=== PATIENT | female | born 1995 | race Caucasian/White ===

== ENCOUNTER 2019-07-26 21:47 | Emergency (ER) | payer OTHER ==
[~2019-07-26] VITALS: Ht 175.3 cm; Wt 117.9 kg
[2019-07-26 22:07] LABS: ABSOLUTE BASOPHILS 0.1 thou/uL (0.0-0.2); ABSOLUTE EOSINOPHILS 0.1 thou/uL (0.0-0.7); ABSOLUTE LYMPHOCYTES 3.2 thou/uL (0.8-5.3); ABSOLUTE MONOCYTES 0.8 thou/uL (0.0-1.2); ABSOLUTE NEUTROPHILS 10.5 thou/uL (1.6-8.1); BASOPHILS 0.8 %; EOSINOPHILS 0.7 %; HEMATOCRIT 42.6 % (37.0-47.0); LYMPHOCYTES 21.6 %; MCH 30.8 pg (26.0-34.0); MCHC 35.2 g/dL (28.0-37.0); MCV 87.7 fL (80.0-100.0); MONOCYTES 5.7 %; MPV 10.2 fl. (7.2-11.1); NUCLEATED RBCS 0 /100WBC; PLATELET COUNT* 282 thou/uL (150-400); POLYS 71.2 %; RBC 4.86 mil/uL (4.20-5.00); RDW-CV 12.8 % (10.5-14.5); WBC 14.8 thou/uL (4.0-11.0)
[2019-07-26 22:15] LABS: CALCIUM 9.1 mg/dL (8.5-10.1); CREATININE 1.3 mg/dL (0.6-1.3); POTASSIUM 3.5 mmol/L (3.5-5.1)
[2019-07-26 22:19] LABS: ALBUMIN 3.5 g/dL (3.4-5.0); MAGNESIUM 1.9 mg/dL (1.8-2.4); TOTAL BILIRUBIN 0.5 mg/dL (<0.1-1.0); TOTAL PROTEIN 7.7 g/dL (6.4-8.2)
[2019-07-26 22:27] LABS: ACETAMINOPHEN < 2 ug/mL (10-30); SALICYLATE 3.9 mg/dL (2.8-20.0)
[2019-07-27 00:18] LABS: URINE BLOOD 3+ (Negative); URINE CLARITY CLEAR; URINE COLOR YELLOW; URINE GLUCOSE-RANDOM NEGATIVE (Negative); URINE KETONES NEGATIVE (Negative); URINE LEUKOCYTES-REFLEX TRACE (Negative); URINE NITRITE-REFLEX NEGATIVE (Negative); URINE PROTEIN 2+ (Negative); URINE SPECIFIC GRAVITY 1.025 (1.005-1.030); URINE UROBILINOGEN 0.2 E.U./dl (0.2-1.0)
[2019-07-27 00:20] LABS: URINE BILIRUBIN 1+ (Negative)
[2019-07-27 00:22] LABS: AMORPHOUS URATES Moderate /LPF (None Seen); BACTERIA-REFLEX >30 Many /HPF (None Seen); CASTS None Seen /LPF (None Seen); ICTOTEST (BILI CONFIRMATORY) Positive (Negative); MUCUS 4-6 Moderate strn/LPF (None Seen); SQUAMOUS 4-10 Moderate /LPF (0-3); TRANSITIONAL EPITHEL CELL 0-3 Few /LPF (None Seen); URINE WBC-REFLEX 6-15 Few /HPF (0-5); WBC CLUMPS Few (None Seen)
[2019-07-27 00:52] LABS: AMP/METHAMP Negative (Negative); BARBITURATES Negative (Negative); BENZODIAZEPINES Negative (Negative); COCAINE Negative (Negative); METHADONE Negative (Negative); OPIATES Negative (Negative); PCP Negative (Negative); THC POSITIVE (Negative)
[2019-07-27] MEDS ORDERED: FLEXERIL PO ×2 (02:56→02:57)
[2019-07-27] MEDS ORDERED: BACTRIM DS TAB1 EACH PO (03:05)
[2019-07-27 03:21] VITALS: BP 133/64
--- NOTE | 2019-07-28 14:51 | EKG ---
[place] [address] ELECTROCARDIOGRAM REPORT Name: RASHMI JONES Room: 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
== END 2019-07-27 03:21 | disposition still patient (30) ==
LOC: M.ERS 21:47
PROVIDERS: Emergency Medicine
DX: R55 Syncope and collapse (principal); R45.851 Suicidal ideations; N39.0 Urinary tract infection, site not specified; M54.6 Pain in thoracic spine; M54.2 Cervicalgia; M25.512 Pain in left shoulder; M25.511 Pain in right shoulder; R51 Headache; F12.10 Cannabis abuse, uncomplicated; Z90.49 Acquired absence of other specified parts of digestive tract; W20.8XXA Other cause of strike by thrown, projected or falling object, initial encounter; Y93.89 Activity, other specified; Y92.002 Bathroom of unspecified non-institutional (private) residence as the place of occurrence of the external cause; Y99.8 Other external cause status